=== PATIENT | female | born 1950 | race Caucasian/White ===

== ENCOUNTER 2016-06-07 10:15 | Outpatient (CLI) | payer OTHER ==
--- NOTE | 2016-06-07 11:02 | DIAGNOSTIC IMAGING REPORT ---
PROCEDURE: DEXA BONE DENSITY STUDY CLINICAL INDICATION: SCREENING COMPARISON: DEXA dated 04/10/2015 FINDINGS: LUMBAR SPINE: Bone mineral density 0.655 g/cm2, T score -3.6 osteoporosis which represents a 3.1% improvement since the previous study LEFT HIP: Bone mineral density 0.748 g/cm2, T score -1.6 osteopenia which represents a 15.1% improvement from the previous study LEFT FEMORAL NECK: Bone mineral density 0.657 g/cm2, T score -1.7 osteopenia which represents a 2.4% improvement from the previous study FRACTURE RISK CALCULATION ( when applicable): 10-year fracture risk of a major osteoporotic fracture and of a hip fracture not reported because some T-score at or below -2.5 (T score greater or equal to -1.0 to: NORMAL) (T score from -1.1 to -2.4: OSTEOPENIA) (T score ess than or equal to -2.5: OSTEOPOROSIS) IMPRESSION: 1. Osteoporosis lumbar spine with a 3.4% improvement. 2. Osteopenia left hip and femoral neck with a 15.1% and 2.4% improvement respectively
== END 2016-06-07 23:00 ==
LOC: XR SRH 10:15
DX: M85.89 Other specified disorders of bone density and structure, multiple sites (principal); M81.8 Other osteoporosis without current pathological fracture; M85.88 Other specified disorders of bone density and structure, other site